=== PATIENT | female | born 1985 | race Two or more races ===

== ENCOUNTER 2018-01-17 15:28 | Outpatient (CLI) | payer MEDICARE, MEDICAID ==
[~2018-01-17] VITALS: Ht 160 cm; Wt 60.0 kg
[~2018-01-17 15:28] MED LIST: ATOR20TA PO; CHOL500026 PO; INSU100V9 SQ; LABE300T PO; LEVO100T PO; LISI10TA4 PO; NOVRI SQ
[2018-01-17 16:01] LABS: TOTAL HEMOGLOBIN 12.7 G/dl (12.0-16.0)
[2018-01-17] MEDS ORDERED: albuterol 2.5 MG/3 ML nebule NEB ONE (16:30)
== END 2018-01-17 23:59 | disposition home or self-care (01) ==
LOC: RT 15:28
PROVIDERS: ATTEND Internal Medicine Pulmonary Disease
DX: J84.10 Pulmonary fibrosis, unspecified (principal); R06.09 Other forms of dyspnea; I12.9 Hypertensive chronic kidney disease with stage 1 through stage 4 chronic kidney disease, or unspecified chronic kidney disease; E10.22 Type 1 diabetes mellitus with diabetic chronic kidney disease; N18.9 Chronic kidney disease, unspecified
CPT/HCPCS: 85018; 94060; 94640; 94727; 94729; 94760

== ENCOUNTER 2018-02-12 08:40 | Day surgery (SDC) | payer MEDICARE, MEDICAID ==
[~2018-02-12] VITALS: Ht 160 cm; Wt 64.7 kg
[2018-02-12 09:00] VITALS: BP 184/104
[2018-02-12] MEDS ORDERED: normal saline 1000ml 1,000 ML IV SCH (09:05)
[2018-02-12] MEDS ORDERED: NPH,100I SQ (09:52)
[2018-02-12] MEDS ORDERED: VALS40TA2 PO (09:52)
[2018-02-12] MEDS ORDERED: PHO667C PO (09:52)
[2018-02-12] MEDS ORDERED: midazolam 2 mg/2 ml injection IV PRN (10:15)
[2018-02-12] MEDS ORDERED: heparin 1,000 UNITS/NS 500ml 500 ML ICATH ONE (10:15)
[2018-02-12] MEDS ORDERED: LIDOcaine 1%/PF (10mg/ml) 5ml vial SQ ONE (10:15)
[2018-02-12] MEDS ORDERED: fentaNYL/PF 50MCG/1 ML 2ML syringe IV PRN (10:15)
[2018-02-12] MEDS ORDERED: iohexol 300 MG/1 ML 50ml polymer ONE (10:29)
[2018-02-12] MEDS ORDERED: LIDOcaine 1%/PF (10mg/ml) 5ml vial ONE (10:29)
[2018-02-12] MEDS ORDERED: iohexol 300mg/ml 100ml inj. ONE (10:29)
[2018-02-12] MEDS ORDERED: midazolam 2 mg/2 ml injection ONE (10:49)
[2018-02-12] MEDS ORDERED: fentaNYL/PF 50MCG/1 ML 2ML syringe ONE (10:50)
[2018-02-12] MEDS ORDERED: heparin 1,000 UNITS/NS 500ml 500 ML ONE (10:50)
[2018-02-12] MEDS ORDERED: hydrALAZINE 20mg/ml inj. IV ONE (11:30)
[2018-02-12 12:00] VITALS: BP 170/124
== END 2018-02-12 12:10 | disposition home or self-care (01) ==
LOC: SSTAY O 08:40
PROVIDERS: ATTEND Radiology Vascular & Interventional Radiology
DX: T82.858A Stenosis of other vascular prosthetic devices, implants and grafts, initial encounter (principal); E10.22 Type 1 diabetes mellitus with diabetic chronic kidney disease; I12.0 Hypertensive chronic kidney disease with stage 5 chronic kidney disease or end stage renal disease; N18.6 End stage renal disease; E03.9 Hypothyroidism, unspecified; Z99.2 Dependence on renal dialysis; Z79.4 Long term (current) use of insulin; Z98.41 Cataract extraction status, right eye; Z98.42 Cataract extraction status, left eye; Z98.890 Other specified postprocedural states; Z79.899 Other long term (current) drug therapy; Y83.2 Surgical operation with anastomosis, bypass or graft as the cause of abnormal reaction of the patient, or of later complication, without mention of misadventure at the time of the procedure; Y92.89 Other specified places as the place of occurrence of the external cause
CPT/HCPCS: 36902; 82948; C1725; C1769; C1894; J1644; J2001; J2250; J3010; J7030; Q9967; A4620; J0360

== ENCOUNTER 2018-02-28 08:06 | Day surgery (SDC) | payer MEDICARE, MEDICAID ==
[~2018-02-28] VITALS: Ht 160 cm; Wt 64.3 kg
[~2018-02-28 08:06] MED LIST changes: -INSU100V9 SQ; +LIDOcaine 1% 30ml preserv. free vial SQ ONE; -LISI10TA4 PO; +NPH,100I SQ; +PHO667C PO; +VALS40TA2 PO
[2018-02-28 08:20] VITALS: BP 142/82
[2018-02-28] MEDS ORDERED: albumin (human) 25% 100 ML IV solution IV PRN (08:30)
[2018-02-28] MEDS ORDERED: normal saline 1000ml 1,000 ML IV PRN (08:30)
[2018-02-28] MEDS ORDERED: LIDOcaine 1% (10mg/ml) 2ml vial SQ STA (08:31)
[2018-02-28] MEDS ORDERED: LEVO125T PO (08:37)
[2018-02-28] MEDS ORDERED: OMEP20TA23 PO (08:37)
[2018-02-28] MEDS ORDERED: VITA-268 PO (08:37)
[2018-02-28] MEDS ORDERED: INSU100V13 SQ (08:37)
[2018-02-28] MEDS ORDERED: VIT1TABL50 PO (08:37)
[2018-02-28] MEDS ORDERED: LEVO1TAB47 PO (08:37)
[2018-02-28 08:39] VITALS: BP 142/82
== END 2018-02-28 08:55 | disposition home or self-care (01) ==
LOC: SSTAY O 08:06
PROVIDERS: ATTEND Radiology Diagnostic Radiology
DX: R14.0 Abdominal distension (gaseous) (principal); R16.0 Hepatomegaly, not elsewhere classified; I12.0 Hypertensive chronic kidney disease with stage 5 chronic kidney disease or end stage renal disease; N18.6 End stage renal disease; E10.22 Type 1 diabetes mellitus with diabetic chronic kidney disease; E03.9 Hypothyroidism, unspecified; Z79.4 Long term (current) use of insulin; Z98.41 Cataract extraction status, right eye; Z98.42 Cataract extraction status, left eye; Z99.2 Dependence on renal dialysis; Z79.899 Other long term (current) drug therapy; Z98.890 Other specified postprocedural states
CPT/HCPCS: 76705; J7030; A6257; J3490